=== PATIENT | male | born 1995 | race Caucasian/White ===

== ENCOUNTER 2019-03-28 23:20 | Emergency (ER) | payer BC | END 2019-03-29 00:42 | disposition home or self-care (01) | LOC: ERS 23:20 | DX: K59.00 Constipation, unspecified (principal); F41.9 Anxiety disorder, unspecified | CPT/HCPCS: 99283 ==

== ENCOUNTER 2020-10-07 02:44 | Emergency (ER) | payer BC, OTHER ==
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
== END 2020-10-07 03:49 ==
LOC: ERS 02:44
DX: S00.83XA Contusion of other part of head, initial encounter (principal); S30.811A Abrasion of abdominal wall, initial encounter; F10.129 Alcohol abuse with intoxication, unspecified; F41.9 Anxiety disorder, unspecified; F17.290 Nicotine dependence, other tobacco product, uncomplicated; Y04.0XXA Assault by unarmed brawl or fight, initial encounter
CPT/HCPCS: 70450; 72125